=== PATIENT | female | born 1990 | race Caucasian/White ===

== ENCOUNTER 2022-10-15 08:36 | Day surgery (SDC) | payer OTHER ==
[2022-10-15] MEDS ORDERED: hydrALAZINE 20 MG/ML VIAL SLOW IVP PRN (10:17)
[2022-10-15 10:26] LABS: Bilirubin Neg (Negative); Blood, Urine Negative (Negative); CAUTI Indications for Culture Dysuria,urgency,freq; Clarity Clear (Clear); Glucose, Urine (Dipstick) Normal (Negative); Ketone, Urine Negative (Negative); Leukocyte Negative (Negative); Nitrite Negative (Negative); Protein, Urine (Dipstick) Negative (Neg-Trace); Urobilinogen Normal mg/dL (Less than 2)
[2022-10-15 10:33] LABS: Urine Culture Reflex No No
[2022-10-15 10:34] LABS: Bacteria/HPF None Seen HPF (None Seen); RBC/HPF 0-3 HPF (0-3); Squamous Epithelial 0-3 HPF (0-3); WBC/HPF 0-3 HPF (0-3)
== END 2022-10-15 13:05 | disposition home or self-care (01) ==
LOC: CSHLD/OP 08:36
PROVIDERS: ATTEND Student in an Organized Health Care Education/Training Program
DX: O60.03 Preterm labor without delivery, third trimester (principal); Z3A.33 33 weeks gestation of pregnancy; Z98.890 Other specified postprocedural states
CPT/HCPCS: 81001; 87480; 87510; 87660; 99285

== ENCOUNTER 2022-11-05 18:45 | Day surgery (SDC) | payer OTHER ==
[2022-11-05 19:24] VITALS: BMI 32.8
[2022-11-05] MEDS ORDERED: hydrALAZINE 20 MG/ML VIAL SLOW IVP PRN (20:22)
[2022-11-05] MEDS ORDERED: Ondansetron PF 4 MG/2 ML Vial IVP PRN (20:24)
[2022-11-05] MEDS ORDERED: Lactated Ringer's 1,000 ML IV SCH (20:30)
[2022-11-05 20:55] LABS: Creatinine, Urine 21.64 mg/dL (47-110); Protein, Urine Random Quant Less than 10 mg/dL (1-14)
[2022-11-05 21:46] LABS: #Eosinphils 0.1 10x3/uL (0.0-0.5); #Monocytes 0.5 10x3/uL (0.0-1.1); %Basophils 0.4 % (0.0-2.0); %Eosinophils 0.9 % (0.0-6.0); %Lymphocytes 27.2 % (18.0-47.0); %Monocytes 6.8 % (0.0-10.0); %Neutrophils 64.4 % (40.0-75.0); Hemoglobin 11.4 g/dL (12.0-15.5); Mean Corpuscular HGB CONC 34.2 g/dL (32.0-36.0); Mean Corpuscular Hemoglobin 29.2 pg (27.0-33.0); Mean Corpuscular Volume 85.2 fl (81.6-98.3); Mean Platelet Volume 10.8 fl (7.4-10.4); Platelet Count 216 10x3/uL (150-450); RBC Distribution Width 13.2 % (11.5-14.5); Red Blood Cell (RBC) Count 3.91 10x6/uL (3.90-5.03); White Blood Cell (WBC) Count 7.8 10x3/uL (3.5-10.5)
[2022-11-05 21:57] LABS: ALT (SGPT) 11 U/L (8-55); AST (SGOT) 15 U/L (5-34); Albumin 3.5 g/dL (3.5-5.0); Alkaline Phosphatase 116 U/L (40-110); Anion Gap 15 mmol/L (10-20); BUN (Urea Nitrogen) 7 mg/dL (7.0-18.7); Bilirubin, Total 0.4 mg/dL (0.2-1.2); Calc. Creatinine Clearance 197 mL/min (70-130); Carbon Dioxide 23 mmol/L (22-29); Chloride 105 mmol/L (98-107); Estimated GFR 124; Globulin 2.7 g/dL (2.4-3.5); Glucose 87 mg/dL (70-105); Potassium 3.5 mmol/L (3.5-5.1); Protein, Total 6.2 g/dL (6.0-8.3); Sodium 139 mmol/L (136-145)
[2022-11-05] MEDS ORDERED: Famotidine 20 MG TAB PO SCH ×3 (22:30→23:00)
[2022-11-05] MEDS ORDERED: Ondansetron ODT 4 MG TAB PO SCH (22:30)
[2022-11-05] MEDS ORDERED: Lidocaine 2% Viscous Solution 10 ML, Aluminum & Magnesium Hydroxide 30 ML SSW SCH (22:45)
== END 2022-11-05 23:30 | disposition home or self-care (01) ==
LOC: CSHLD/OP 18:45
PROVIDERS: ATTEND Obstetrics & Gynecology
DX: O21.2 Late vomiting of pregnancy (principal); Z79.899 Other long term (current) drug therapy; Z3A.36 36 weeks gestation of pregnancy
CPT/HCPCS: 80053; 82570; 84156; 85025; 99285; Q0162

== ENCOUNTER 2022-12-08 17:47 | Inpatient (IN) | payer OTHER ==
[2022-12-08] MEDS ORDERED: Lidocaine 1% (PF) 30 ML VIAL SC PRN (18:24)
[2022-12-08] MEDS ORDERED: HYDROcodone/Acetaminophen 5/325 mg Tablet PO PRN ×2 (18:24)
[2022-12-08] MEDS ORDERED: Methylergonovine 0.2 MG/ML VIAL IM PRN (18:24)
[2022-12-08] MEDS ORDERED: Ondansetron PF 4 MG/2 ML Vial IVP PRN (18:24)
[2022-12-08] MEDS ORDERED: hydrALAZINE 20 MG/ML VIAL SLOW IVP PRN (18:24)
[2022-12-08] MEDS ORDERED: Ibuprofen 800 MG TAB PO PRN (18:24)
[2022-12-08] MEDS ORDERED: Misoprostol 200 MCG TAB PR PRN (18:24)
[2022-12-08] MEDS ORDERED: Promethazine HCl 25 MG/ML VIAL IM PRN (18:24)
[2022-12-08 18:29] VITALS: BMI 32.9
[2022-12-08] MEDS ORDERED: NS w/ Oxytocin 30 units 500 ML IV SCH (18:30)
[2022-12-08] MEDS ORDERED: Lactated Ringer's 1,000 ML IV SCH (18:30)
[2022-12-08 18:50] LABS: Hemoglobin 12.5 g/dL (12.0-15.5); Mean Corpuscular HGB CONC 33.1 g/dL (32.0-36.0); Mean Corpuscular Hemoglobin 27.8 pg (27.0-33.0); Mean Platelet Volume 11.1 fl (7.4-10.4); Platelet Count 223 10x3/uL (150-450); RBC Distribution Width 14.1 % (11.5-14.5)
[2022-12-08 19:23] LABS: HBSAg Index 0.16 S/CO (0-0.99); Hep B Surf Ag Non-Reactive S/CO (NonReactive); Syphilis Antibody Nonreactive (Nonreactive); Syphilis Antibody Index 0.02 S/CO (<1.00 Non-Reactive)
[2022-12-08 19:53] LABS: SARS-CoV-2 NAA Rapid Test Not Detected (NotDetected)
[2022-12-09] MEDS ORDERED: Misoprostol 200 MCG TAB VAG PRN (02:03)
[2022-12-09] MEDS ORDERED: hydrALAZINE 20 MG/ML VIAL SLOW IVP PRN (02:03)
[2022-12-09] MEDS ORDERED: Boostrix 0.5 ML (Tdap) VIAL (>/=7 yrs of age) IM ONE (02:03)
[2022-12-09] MEDS ORDERED: Ondansetron PF 4 MG/2 ML Vial IVP PRN (02:03)
[2022-12-09] MEDS ORDERED: HYDROcodone/Acetaminophen 5/325 mg Tablet PO PRN ×2 (02:03)
[2022-12-09] MEDS ORDERED: Benzocaine-Menthol 82.5 ML CAN TOP PRN (02:03)
[2022-12-09] MEDS ORDERED: NS w/ Oxytocin 30 units 500 ML IV SCH (02:03)
[2022-12-09] MEDS ORDERED: Bisacodyl 10 MG SUPP PR PRN (02:03)
[2022-12-09] MEDS ORDERED: Milk Of Magnesia 30 ML UDCUP PO PRN (02:03)
[2022-12-09] MEDS ORDERED: Lanolin Ointment 7 GM TUBE TOP PRN (02:03)
[2022-12-09] MEDS ORDERED: Ibuprofen 800 MG TAB PO SCH (06:00)
[2022-12-09] MEDS: Prenatal Vitamin 1 TAB PO SCH (08:28)
[2022-12-09] MEDS: Docusate 100 MG CAP PO SCH ×2 (08:28→21:31)
[2022-12-09] MEDS: Ferrous Sulfate 325 MG TAB PO SCH ×2 (08:30→16:15)
[2022-12-09] MEDS: Magnesium Oxide 250 MG TAB PO SCH (08:45)
[2022-12-09] MEDS ORDERED: Prenatal Vitamin 1 TAB PO SCH (09:00)
[2022-12-09] MEDS: Ibuprofen 800 MG TAB PO SCH ×2 (15:40→21:31)
[2022-12-10] MEDS: Ibuprofen 800 MG TAB PO SCH ×2 (06:02→16:20)
[2022-12-10] MEDS: Magnesium Oxide 250 MG TAB PO SCH (08:23)
[2022-12-10] MEDS: Prenatal Vitamin 1 TAB PO SCH (08:23)
[2022-12-10] MEDS: Docusate 100 MG CAP PO SCH ×2 (08:24→20:22)
[2022-12-10] MEDS: Ferrous Sulfate 325 MG TAB PO SCH ×2 (08:32→18:49)
[2022-12-10 20:18] VITALS: BP 105/61; TEMP 97.9
== END 2022-12-10 20:52 | disposition home or self-care (01) | DRG 807 ==
LOC: CSHLD/OP 17:47 → CSHLD 18:26 → CSHPED 12-09 01:40
PROVIDERS: ADMIT Obstetrics & Gynecology; ATTEND Obstetrics & Gynecology
PROC: 10E0XZZ Delivery of Products of Conception, External Approach (ICD-10-PCS; principal; 2022-12-08)
DX: O69.81X0 Labor and delivery complicated by cord around neck, without compression, not applicable or unspecified (principal); Z37.0 Single live birth; Z3A.40 40 weeks gestation of pregnancy; Z20.822 Contact with and (suspected) exposure to COVID-19; Z79.899 Other long term (current) drug therapy
CPT/HCPCS: 85027; 86780; 86850; 86900; 86901; 87340; 99285; U0002